=== PATIENT | male | born 1990 | race Two or more races ===

== ENCOUNTER 2024-05-11 06:18 | Emergency (ER) | payer OTHER ==
[~2024-05-11] VITALS: Ht 175.3 cm; Wt 113.4 kg
[2024-05-11] MEDS ORDERED: HYOSCYAMINE SULFATE 0.125 MG TAB.SUBL SL STA (07:15)
[2024-05-11] MEDS ORDERED: RINGERS SOLUTION,LACTATED 500 ML IV STA (07:16)
[2024-05-11] MEDS ORDERED: FAMOtidine 10 MG/ML (4ML VIAL) IV PUSH STA (07:16)
[2024-05-11 07:56] LABS: MEAN CELL VOLUME 85.4 fL (80.0-100.00); MEAN CORPUSCULAR HEMOGLOBIN 29.7 pg (27.00-32.0); MEAN CORPUSCULAR HGB CONC 34.8 g/dl (32.0-36.0); PLATELET COUNT 321 K/uL (150-450); RED BLOOD COUNT 5.39 M/uL (4.00-6.00); RED CELL DISTRIBUTION WIDTH 13.1 % (11.5-14.5)
[2024-05-11 08:29] LABS: CALCIUM 9.1 mg/dL (8.5-10.1); CREATININE SERUM 1.01 mg/dL (0.70-1.30); GFR 84.56
[2024-05-11 08:37] LABS: POTASSIUM 4.19 mEq/L (3.5-5.1)
[2024-05-11] MEDS ORDERED: DICYCLOMINE HCL 20 MG TABLET PO STA (12:01)
== END 2024-05-11 13:36 | disposition home or self-care (01) ==
LOC: ER 06:19
DX: K30 Functional dyspepsia (principal); R14.3 Flatulence; R14.2 Eructation; R14.1 Gas pain